=== PATIENT | female | born 1950 | race Caucasian/White ===

== ENCOUNTER 2018-03-22 16:53 | Emergency (ER) | payer OTHER, MEDICARE ==
[2018-03-22] MEDS ORDERED: ASPIRIN 81 MG TABLET, CHEWABLE PO ONE (20:12)
--- NOTE | 2018-03-22 20:14 | ER Document Report ---
ED Medical Screen (RME) - General Chief Complaint: Chest Pain Stated Complaint: CHEST PAIN Time Seen by Provider: 03/22/18 20:10 Notes: 67 year old female with chief complaint of pain in her chest and her mid chest due to her back that began this morning, she went to primary care, who did an EKG, recommended she come here. She denies any current symptoms. She denies shortness of breath, nausea vomiting, fever or chills. She has a resolving cough from bronchitis. Denies history of [place]. TRAVEL OUTSIDE OF THE [place] IN LAST 30 DAYS: No - Related Data Allergies/Adverse Reactions: Penicillins Allergy (Verified 03/22/18 16:56) Physical Exam - Vital signs Vitals: Temp Pulse Resp BP Pulse Ox 98.1 F 91 16 170/75 H 95 03/22/18 17:20 03/22/18 17:20 03/22/18 17:20 03/22/18 17:20 03/22/18 17:20 - Respiratory Respiratory status: No respiratory distress Breath sounds: Normal - Cardiovascular Rhythm: Regular. No: Tachycardia Heart sounds: Normal auscultation, S1 appreciated, S2 appreciated - Psychological Associated symptoms: Tearful - describes being under a lot of stress Course - Re-evaluation Re-evalutation: I have greeted and performed a rapid initial assessment of this patient. A comprehensive ED assessment and evaluation of the patient, analysis of test results and completion of the medical decision making process will be conducted by additional ED providers. - Vital Signs Vital signs: Temp Pulse Resp BP Pulse Ox 98.1 F 91 16 170/75 H 95 03/22/18 17:20 03/22/18 17:20 03/22/18 17:20 03/22/18 17:20 03/22/18 17:20
--- NOTE | 2018-03-22 20:40 | RADIOLOGY REPORT (SQ) ---
EXAM DESCRIPTION: XR CHEST 1 VIEW COMPLETED DATE/TME: 03/22/2018 20:11 CLINICAL HISTORY: 67 years, Female, chest pain COMPARISON: None. NUMBER OF VIEWS: One TECHNIQUE: AP view of the chest LIMITATIONS: None. FINDINGS: Cardiomediastinal silhouette is within normal limits. No lung consolidate. No pleural effusion. No pneumothorax. No acute osseous finding. IMPRESSION: No acute chest finding. copyright 2010 [employer]- All Rights Reserved
[2018-03-22 21:27] LABS: ABSOLUTE EOSINOPHILS # (AUTO) 0.2 10^3/uL (0.0-0.6); ABSOLUTE LYMPHOCYTES (AUTO) 2.3 10^3/uL (0.5-4.7); ABSOLUTE MONOCYTES (AUTO) 0.5 10^3/uL (0.1-1.4); ABSOLUTE NEUT (AUTO) 6.9 10^3/uL (1.7-8.2); BASOPHILS % (AUTO) 0.3 % (0-2); EOSINOPHILS % (AUTO) 1.6 % (0-6); HEMATOCRIT 39.9 % (36.0-47.0); HEMOGLOBIN 13.9 g/dL (12.0-15.5); LYMPHOCYTES % (AUTO) 23.3 % (13-45); MEAN CORPUSCULAR HEMOGLOBIN 30.9 pg (27.0-33.4); MEAN CORPUSCULAR HGB CONC 34.8 g/dL (32.0-36.0); MEAN CORPUSCULAR VOLUME 89 fl (80-97); MONOCYTES % (AUTO) 5.4 % (3-13); PLATELET COUNT 213 10^3/uL (150-450); RED BLOOD COUNT 4.49 10^6/uL (3.72-5.28); RED CELL DISTRIBUTION WIDTH 13.7 % (11.5-14.0); SEGMENTED NEUTROPHILS % (AUTO) 69.4 % (42-78); TOTAL CELLS COUNTED % (AUTO) 100 %; WHITE BLOOD COUNT 9.9 10^3/uL (4.0-10.5)
[2018-03-22 22:01] LABS: ALANINE AMINOTRANSFERASE 47 U/L (9-52); ALBUMIN 4.5 g/dL (3.5-5.0); ALKALINE PHOSPHATASE 94 U/L (38-126); ANION GAP 11 (5-19); ASPARTATE AMINO TRANSFERASE 30 U/L (14-36); BILIRUBIN,DIRECT 0.3 mg/dL (0.0-0.4); BILIRUBIN,TOTAL 0.4 mg/dL (0.2-1.3); BLOOD UREA NITROGEN 24 mg/dL (7-20); CALCIUM 9.6 mg/dL (8.4-10.2); CARBON DIOXIDE 27 mmol/L (22-30); CHLORIDE 103 mmol/L (98-107); GLUCOSE 97 mg/dL (75-110); TOTAL PROTEIN 7.4 g/dL (6.3-8.2)
--- NOTE | 2018-03-23 01:34 | ER Document Report ---
ED General - General Chief Complaint: Chest Pain Stated Complaint: CHEST PAIN Time Seen by Provider: 03/22/18 20:10 Notes: Patient is a 67-year-old female who presents with chest pain. Patient says the pain is in the lower chest and radiates to her back. Says is intermittent. States she is been under a lot of stress and anxiety recently as her a few months ago. She is very emotionally upset when I enter the room as she has been waiting a long time in the waiting room and she says that she was anxious which she felt she could be having a heart attack that she waited in the waiting room for a long period time. At that she was into the room she says "I just want to go home". She says she has dogs at home that she is a care for. I am eventually able to get her to calm down some and talk to her low bit more about her pain. She does have a history of high cholesterol and hypertension. She smokes some days. He was adopted so she does not know her family history. She herself has never had any heart attacks. A recent stress testing. She currently does not have any chest pain at this time. She denies being short of breath. She denies recent fevers or infections. No other complaints at this time. TRAVEL OUTSIDE OF THE [place] IN LAST 30 DAYS: No - Related Data Allergies/Adverse Reactions: Penicillins Allergy (Verified 03/22/18 20:13) Past Medical History - Social History Smoking Status: Current Some Day Smoker Frequency of alcohol use: None Drug Abuse: None Family History: Reviewed & Not Pertinent Patient has suicidal ideation: No Patient has homicidal ideation: No Renal/ Medical History: Denies: Hx Peritoneal Dialysis Review of Systems - Review of Systems Notes: My Normal Review Basic REVIEW OF SYSTEMS: CONSTITUTIONAL : Denies fever, chills, or sweats. Denies recent illness. EENT: Denies eye, ear, throat, or mouth pain or symptoms. Denies nasal or sinus congestion. CARDIOVASCULAR: Has intermittent chest pain. RESPIRATORY: Denies cough, cold, or chest congestion. Denies shortness of breath, difficulty breathing, or wheezing. GASTROINTESTINAL: Denies abdominal pain. Denies nausea, vomiting, or diarrhea. MUSCULOSKELETAL: Denies neck or back pain or joint pain or swelling. SKIN: Denies rash or skin lesions. NEUROLOGICAL: Denies altered mental status or loss of consciousness. Denies headache. Denies weakness or paralysis or loss of use of either side. Denies problems with gait or speech. Denies sensory or motor loss. PSYCHIATRIC: Anxiety and depression ALL OTHER SYSTEMS REVIEWED AND NEGATIVE. Physical Exam - Vital signs Vitals: Temp Pulse Resp BP Pulse Ox 98.1 F 91 16 170/75 H 95 03/22/18 17:20 03/22/18 17:20 03/22/18 17:20 03/22/18 17:20 03/22/18 17:20 - Notes Notes: General Appearance: Well nourished, alert, cooperative, no acute distress, no obvious discomfort. Vitals: reviewed, See vital signs table. Head: no swelling or tenderness to the head Eyes: PERRL, EOMI, Conjuctiva clear Mouth: No decreasd moisture Lungs: No wheezing, No rales, No rhonci, No accessory muscle use, good air exchange bilaterally. Heart: Normal rate, Regular rythm, No murmur, no rub Abdomen: Normal BS, soft, No rigidity, No abdominal tenderness, No guarding, no rebound, no abdominal masses, no organomegaly Extremities: strength 5/5 in all extremities, good pulses in all extremities, no swelling or tenderness in the extremities, no edema. Skin: warm, dry, appropriate color, no rash Neuro: speech clear, oriented x 3, normal affect, responds appropriately to questions. Course - Re-evaluation Re-evalutation: 03/23/18 07:17 Talk to patient length. Informed her that her heart score is 4. I recommend admission. I informed her that even though her EKG and cardiac enzymes are negative it does not mean that she is not at risk for heart attack. I informed her that based on her heart score she does have a 12% risk of a serious cardiac event in the next 6 weeks. Informed her because of this we do recommend staying in the hospital and having her troponins trended and having a stress test performed. Patient says that she does not list any longer. Patient says she needs to go home and take care of her dogs. I informed her if she is unwilling to stay then a request that she start a daily aspirin and that I would refer her to cardiology for close follow-up. Patient says she prefers to go to her doctor [facility]. She says that she would follow-up with them and would start taking a daily aspirin. I apologize for her weight in the waiting room and I informed her that we want what is best for her notes were recommend her staying; however, if she is adamant that she will not stay then to go forward with the plan of taking daily aspirin and follow-up closely with her doctor on Sunday. I informed her to please reconsider return to ER anytime especially if she has recurrent pain or feels unwell in any way. Patient agrees with plan will be discharged home as she requests. Patient is not at all confused or altered therefore I do not feel that she can be held against her will and she will be discharged she request. Dictation of this chart was performed using voice recognition software; t herefore, there may be some unintended grammatical errors. - Vital Signs Vital signs: Temp Pulse Resp BP Pulse Ox 97.8 F 87 16 185/80 H 100 03/23/18 02:58 03/23/18 02:58 03/23/18 02:58 03/23/18 02:58 03/23/18 02:58 - Laboratory Result Diagrams: 03/22/18 20:45 03/22/18 20:45 Laboratory results interpreted by me: 03/22/18 20:45 BUN 24 H Est GFR (Non-Af Amer) 54 L - EKG Interpretation by Me Additional EKG results interpreted by me: 03/23/18 01:33 EKG is reviewed and interpreted by me. EKG shows sinus rhythm with a rate of [address] segment elevation or depression. No ischemic T wave inversions. TN interval, QRS duration, QT intervals are within normal range. Old EKG for comparison is from earlier today from the patient's office. Discharge - Discharge Clinical Impression: Chest pain Qualifiers: Chest pain type: unspecified Qualified Code(s): R07.9 - Chest pain, unspecified Condition: Stable Disposition: HOME, SELF-CARE Additional Instructions: Your EKG and blood work looking her heart today was normal. As discussed with you this does not 100% rule out the possibility of future heart attack. We do recommend admission to the hospital as based on risk factors you do have risk of having a future heart attack; however, we respect your right to make your own decisions. We want what is best for you so please have a very low threshold to return to the ER at any time for reevaluation. Please return to ER immediately if you have recurrent chest pain. Please follow-up with your doctor on Sunday to see a animal care giver to arrange for stress testing. Again, please do not hesitate to return to ER anytime. Please take aspirin 81mg every day.
[2018-03-23 02:58] VITALS: BP 185/80
--- NOTE | 2018-03-23 20:15 | EKG REPORT ---
SEVERITY:- BORDERLINE ECG - SINUS RHYTHM PROBABLE LEFT ATRIAL ABNORMALITY : Confirmed by: Hollis Dominguez 23-Mar-2018 20:15:07
== END 2018-03-23 02:58 | disposition home or self-care (01) ==
LOC: ER 16:53
DX: R07.9 Chest pain, unspecified (principal); F32.9 Major depressive disorder, single episode, unspecified; F41.9 Anxiety disorder, unspecified; Z63.4 Disappearance and death of family member; I10 Essential (primary) hypertension; F17.200 Nicotine dependence, unspecified, uncomplicated; Z88.0 Allergy status to penicillin
CPT/HCPCS: 36415; 71045; 80053; 84484; 85025; 93005; 93010; 99285